=== PATIENT | female | born 1985 | race Caucasian/White ===

== ENCOUNTER 2019-07-12 18:10 | Emergency (ER) | payer MEDICAID ==
[~2019-07-12] VITALS: Ht 172.7 cm; Wt 127.0 kg
[~2019-07-12 18:10] MED LIST: INSU100V3 IJ; NAPR-985 PO
[2019-07-12 18:31] VITALS: Ht 172.7 cm; Wt 127.0 kg
[2019-07-12] MEDS ORDERED: KETOROLAC 30 MG INJ IM STA (19:46)
[2019-07-12] MEDS ORDERED: INSULIN LISPRO 100 UNIT/ML VIAL SC ONE (21:00)
[2019-07-12] MEDS ORDERED: ACCU-CHEK XX ONE (21:00)
[2019-07-12 21:08] VITALS: BP 165/93; PULSE 82; RESP 18
== END 2019-07-12 21:13 | disposition home or self-care (01) ==
LOC: E/R 18:10
DX: S33.5XXA Sprain of ligaments of lumbar spine, initial encounter (principal); I10 Essential (primary) hypertension; E11.65 Type 2 diabetes mellitus with hyperglycemia; W22.09XA Striking against other stationary object, initial encounter; Y92.828 Other wilderness area as the place of occurrence of the external cause; Z79.4 Long term (current) use of insulin; Z87.891 Personal history of nicotine dependence
CPT/HCPCS: 72100; 81025; 82962; 96372; J1815; J1885; Z7502